=== PATIENT | male | born 1955 | race Caucasian/White ===

== ENCOUNTER 2020-11-15 12:11 | Outpatient (CLI) | payer OTHER ==
[2020-11-15] MEDS ORDERED: BARIUM SULFATE 135 ML SUSP.RECON (E-Z-HD) PO ONE (12:26)
== END 2020-11-15 21:34 | disposition home or self-care (01) ==
LOC: SRD 12:11
PROVIDERS: ATTEND Otolaryngology
DX: K57.90 Diverticulosis of intestine, part unspecified, without perforation or abscess without bleeding (principal)
CPT/HCPCS: 74230; 92611-GN

== ENCOUNTER 2021-04-13 11:00 | Outpatient (CLI) | payer OTHER | END 2021-04-13 19:05 | disposition home or self-care (01) | LOC: SMI 11:00 | PROVIDERS: ATTEND Internal Medicine Rheumatology | DX: M17.11 Unilateral primary osteoarthritis, right knee (principal); M22.41 Chondromalacia patellae, right knee; S83.11 Anterior subluxation and dislocation of proximal end of tibia; X58.XXXS Exposure to other specified factors, sequela | CPT/HCPCS: 73564; 73721 ==